=== PATIENT | female | born 1960 | race Caucasian/White ===

== ENCOUNTER → 2016-03-20 | Day surgery (SDC) | payer OTHER ==
[~2016-03-20] MED LIST: BACITRACIN OINT 1 EACH PACKET TOPICAL ONE; LIDOCAINE 1% INJ 10MG/ML (20 ML MDV) ONE; SODIUM BICARB 4% 5 ML VIAL (0.48 MEQ/ML) ONE
--- NOTE | 2016-03-20 10:09 | PCN ---
DATE OF PROCEDURE: PREPROCEDURE DIAGNOSIS: Mammographic abnormality, left breast. POSTPROCEDURE DIAGNOSIS: Mammographic abnormality, left breast. PROCEDURE: Left breast stereotactic core biopsy. DESCRIPTION OF PROCEDURE: Patient was taken to the stereotactic core room and the area of concern in the left breast was localized. Needle was driven to the correct coordinates and multiple core biopsies were obtained. Radiograph of specimen revealed that the area of concern had been sampled. A marking device was left behind. Patient tolerated the procedure in stable condition. Specimen sent to Pathology.
--- NOTE | 2016-03-20 16:33 | MM ---
EXAMINATION TYPE: MG stereo VAD BX LT DATE OF EXAM: 03/20/2016 8:43 AM COMPARISON: Outside mammograms 02/28/2016 and 03/07/2016 CLINICAL HISTORY: 55-year-old female with left breast microcalcifications. TECHNIQUE: Stereotactic guided core biopsy of the left breast. FINDINGS: The procedure of stereotactic guided core biopsy was explained to the patient. Benefits, alternatives, and risks were discussed. An informed consent was then obtained. [facility]. Shortness pathway was CC from above approach. I performed the localization, then surgeon, Dr. Jeovanny Carl performed the remainder of the procedure. A vacuum assisted biopsy gun was used to obtain multiple 8 gauge core samples. The patient tolerated the procedure well without any immediate complication. The patient was kept in the radiology department for short stay after the procedure and then discharged home in stable condition. Targeted calcifications are identified in specimen mammogram. Post biopsy mammogram shows the clip to appear in satisfactory position relative to the targeted microcalcifications at the 12:30 position on the preprocedure images. IMPRESSION: SUCCESSFUL, UNCOMPLICATED STEREOTACTIC GUIDED CORE BIOPSY OF LEFT BREAST MICROCALCIFICATIONS; FULL PATHOLOGY RESULTS TO FOLLOW. Pathology Results: Benign BREAST, LEFT, CORE BIOPSY: PENDING CONSULTATION, SEE ADDENDUM/FINAL DIAGNOSIS. ADDENDUM REPORT BREAST, LEFT, STEREOTACTIC CORE BIOPSY ([id number]; A1-2; 03/20/2016): FIBROCYSTIC CHANGES INCLUDING COLUMNAR CELL CHANGE WITH MICROCALCIFICATIONS. Recommendation Follow up mammogram of the left breast in 6 months. REINALDO
== END ==
LOC: RADMAMWWP 07:25
PROVIDERS: ATTEND Surgery
DX: N64.89 Other specified disorders of breast (principal)
CPT/HCPCS: 88305; 19081; A4648; J2001

== ENCOUNTER → 2016-09-01 | Outpatient (CLI) | payer OTHER ==
--- NOTE | 2016-09-03 09:16 | MM ---
Reason for exam: follow-up at short interval from prior study. Last mammogram was performed 6 months ago. History: Benign MG stereo VAD BX LT of the left breast, March 20, 2016. Physical Findings: Nurse did not find any significant physical abnormalities on exam. MG Diagnostic Mammo LT w CAD CC and MLO view(s) were taken of the left breast. Prior study comparison: March 04, 2016, mammogram. February 28, 2016, mammogram. There are scattered fibroglandular densities. Previous mammotome biopsy in the left breast. No significant new findings when compared with previous films. These results were verbally communicated with the patient and result sheet given to the patient on 09/01/16. ASSESSMENT: Negative, BI-RAD 1 RECOMMENDATION: Routine screening mammogram of both breasts in 6 months. Back on schedule.
== END | disposition home or self-care (01) ==
LOC: RADMAMWWP 10:13
PROVIDERS: ATTEND Surgery
DX: R92.8 Other abnormal and inconclusive findings on diagnostic imaging of breast (principal)

== ENCOUNTER → 2017-10-27 | Outpatient (CLI) | payer OTHER ==
--- NOTE | 2017-10-27 17:23 | BD ---
EXAMINATION TYPE: Axial Bone Density DATE OF EXAM: 10/27/2017 COMPARISON: NONE CLINICAL HISTORY: 57-year-old female screening Height: 5'3 Weight: 163 FRAX RISK QUESTIONS: Secondary Osteoporosis: Current Tobacco Use: y RISK FACTORS HISTORY OF: Active: n Postmenopausal woman: y MEDICATIONS: Additional Medications: anxiety, depression, cholesterol, high blood pressure Additional History: EXAM MEASUREMENTS: Bone mineral densitometry was performed using the [employer] System. Bone mineral density as measured about the Lumbar spine is: ----- L1-L4(G/cm2): 1.450 T Score Values are as follows: ----- L2: 1.1 ----- L3: 2.6 ----- L4: 3.1 ----- L1-L4: 2.2 Bone mineral density about the R hip (g/cm2): 1.120 Bone mineral density about the L hip (g/cm2): 1.104 T Score values are as follows: -----R Neck: 0.6 -----L Neck: 0.5 -----R Total: 0.4 -----L Total: 0.2 IMPRESSION: Normal (Values between +1 and -1 indicate normal bone mass). Consider repeating this study in 5 year s or sooner if there is some new clinical indication. NOTE: T-SCORE=SD OF THE YOUNG ADULT MEAN.
--- NOTE | 2017-10-29 09:16 | MM ---
Reason for exam: screening (asymptomatic). Last mammogram was performed 1 year and 2 months ago. History: Benign MG stereo VAD BX LT of the left breast, March 20, 2016. Physical Findings: A clinical breast exam by your physician is recommended on an annual basis and results should be correlated with mammographic findings. MG Screening Mammo w CAD Bilateral CC and MLO view(s) were taken. Prior study comparison: September 01, 2016, left breast MG diagnostic mammo LT w CAD. March 04, 2016, mammogram. Previous mammotome biopsy in the left breast. No significant changes when compared with prior studies. ASSESSMENT: Benign, BI-RAD 2 RECOMMENDATION: Routine screening mammogram of both breasts in 1 year.
== END | disposition home or self-care (01) ==
LOC: RADBDWWP 12:32
PROVIDERS: ATTEND Family Medicine
DX: Z12.31 Encounter for screening mammogram for malignant neoplasm of breast (principal); Z78.0 Asymptomatic menopausal state
CPT/HCPCS: 77067; 77080

== ENCOUNTER → 2018-12-03 | Outpatient (CLI) | payer OTHER ==
--- NOTE | 2018-12-07 10:06 | MM ---
Reason for exam: screening (asymptomatic). Last mammogram was performed 1 year and 1 month ago. History: Patient is postmenopausal. Benign MG stereo VAD BX LT of the left breast, March 20, 2016. Physical Findings: A clinical breast exam by your physician is recommended on an annual basis and results should be correlated with mammographic findings. MG Screening Mammo w CAD Bilateral CC and MLO view(s) were taken. Prior study comparison: October 27, 2017, bilateral MG screening mammo w CAD. September 01, 2016, left breast MG diagnostic mammo LT w CAD. The breast tissue is heterogeneously dense. This may lower the sensitivity of mammography. Left biopsy marker noted. ASSESSMENT: Negative, BI-RAD 1 RECOMMENDATION: Routine screening mammogram of both breasts in 1 year.
== END | disposition home or self-care (01) ==
LOC: RADMAMWWP 13:13
PROVIDERS: ATTEND Family Medicine
DX: Z12.31 Encounter for screening mammogram for malignant neoplasm of breast (principal)
CPT/HCPCS: 77067

== ENCOUNTER → 2019-01-15 | Outpatient (CLI) | payer OTHER ==
--- NOTE | 2019-01-15 07:48 | MR ---
MR lumbar spine wo con Radiculopathy, lumbar region Multiplanar, multiecho imaging of the lumbar spine was obtained without contrast on a 3 Lety magnet. REFERENCE:None. FINDINGS: Paraspinal soft tissues are normal. Vertebral body height and alignment are maintained. Cord signal is maintained. The conus ends normall y at the level of the mid body of L2. At T12-L1, there are mild hypertrophic changes in the facets. At L1-2, there is mild capsulitis and hypertrophic change in the facets. At L2-3, there is mild capsulitis and hypertrophic change in the facets. At L3-4, there is mild disc space loss. Intervertebral foramina are well maintained. There is no sign ificant compressive discopathy. There is hypertrophic change and capsulitis within the facets. At L4-5, the intervertebral foramina are well maintained. There is a diffuse disc displacement. There is hypertrophic change in the facets. There is mild trefoiling of the thecal sac. There is bilateral lateral recess stenosis. At L5-S1, the intervertebral foramina are well maintained. There is a diffuse disc displacement. Ther e are hypertrophic changes in the facets. IMPRESSION: 1. DIFFUSE FACET ARTHROPATHY. 2. BILATERAL LATERAL RECESS STENOSIS, L4-5. 3. MILD CENTRAL CANAL STENOSIS, L4-5.
== END ==
LOC: RADMRIMAIN 07:04
PROVIDERS: ATTEND Family Medicine
DX: M48.061 Spinal stenosis, lumbar region without neurogenic claudication (principal); M46.96 Unspecified inflammatory spondylopathy, lumbar region
CPT/HCPCS: 72148

== ENCOUNTER → 2020-04-03 | Outpatient (CLI) | payer OTHER ==
--- NOTE | 2020-04-04 11:50 | MM ---
Reason for exam: screening (asymptomatic). Last mammogram was performed 1 year and 4 months ago. History: Patient is postmenopausal. Benign MG stereo VAD BX LT of the left breast, March 20, 2016. Physical Findings: A clinical breast exam by your physician is recommended on an annual basis and results should be correlated with mammographic findings. MG Screening Mammo w CAD Bilateral CC and MLO view(s) were taken. Prior study comparison: December 03, 2018, bilateral MG screening mammo w CAD. October 27, 2017, bilateral MG screening mammo w CAD. There are scattered fibroglandular densities. There is no discrete abnormality. No significant changes when compared with prior studies. ASSESSMENT: Negative, BI-RAD 1 RECOMMENDATION: Routine screening mammogram of both breasts in 1 year.
== END | disposition home or self-care (01) ==
LOC: RADMAMWWP 09:37
PROVIDERS: ATTEND Family Medicine
DX: Z12.31 Encounter for screening mammogram for malignant neoplasm of breast (principal)
CPT/HCPCS: 77067

== ENCOUNTER → 2021-03-29 | Outpatient (CLI) | payer OTHER ==
--- NOTE | 2021-03-29 11:35 | CTL ---
EXAMINATION TYPE: CT Low Dose Lung DATE OF EXAM ORDERED: 03/29/2021 HISTORY: 60-year-old female personal history tobacco use. Lung cancer screening CT DLP: 88.[address] CTDI: 2.4 mGy Automated exposure control for dose reduction was used. SCREENING VISIT: Baseline COMPARISON: 02/11/2013 TECHNIQUE: Low dose computed tomography scan was performed through the chest with coronal and sagitta l reconstructions. CT DIAGNOSTIC QUALITY: Satisfactory FINDINGS: Heart normal size without pericardial effusion. Aorta normal caliber with a variant direct takeoff of the left vertebral artery directly from the aor tic arch. No thoracic lymphadenopathy by CT size criteria. Mild diffuse bronchial wall thickening. Mild centrilobular emphysema. A small, subtle 9 mm groundglass focus appears segment left lower lobe, axial image 102. A few scattered 3 mm pulmonary nodules bilaterally. For example, axial image 39, 72, 118, and 151. No larger pulmonary nodules are identified. No consolidation or pleural effusion. Tiny hiatal hernia. Visualized upper abdomen otherwise show no gross abnormal. Bones: Minimal anterior endplate spondylosis scattered within the thoracic spine. IMPRESSION: 1. LungRADS 2, benign. A few scattered 3 mm pulmonary nodules on baseline screening. 2. A subtle patch of groundglass superior segment left lower lobe suggests a small nonspecific infect ious or inflammatory focus. Correlate for any acute symptoms. 3. COPD with mild emphysema. Recommend smoking cessation. CT LUNG RAD AND CT CHEST RECOMMENDATION: Lung-Rad 2 Benign Appearance or Behavior: Continue annual sc reening with LDCT in 12 months. S Modifier (other clinically significant findings): None
== END | disposition home or self-care (01) ==
LOC: RADCTMAIN 07:54
PROVIDERS: ATTEND Family Medicine
DX: Z12.2 Encounter for screening for malignant neoplasm of respiratory organs (principal); R91.8 Other nonspecific abnormal finding of lung field; J43.2 Centrilobular emphysema; Z87.891 Personal history of nicotine dependence
CPT/HCPCS: 71271

== ENCOUNTER → 2021-04-24 | Outpatient (CLI) | payer OTHER ==
--- NOTE | 2021-04-25 14:23 | MM ---
Reason for exam: screening (asymptomatic). Last mammogram was performed 1 year and 1 month ago. History: Patient is postmenopausal. Family history of breast cancer in sister at age 56. Benign MG stereo VAD BX LT of the left breast, March 20, 2016. Physical Findings: A clinical breast exam by your physician is recommended on an annual basis and results should be correlated with mammographic findings. MG 3D Screening Mammo W/Cad Bilateral CC and MLO view(s) were taken. Prior study comparison: April 03, 2020, bilateral MG screening mammo w CAD. December 03, 2018, bilateral MG screening mammo w CAD. There are scattered fibroglandular densities. There is no discrete abnormality. No significant changes when compared with prior studies. ASSESSMENT: Negative, BI-RAD 1 RECOMMENDATION: Routine screening mammogram of both breasts in 1 year.
== END | disposition home or self-care (01) ==
LOC: RADMAMWWP 10:10
PROVIDERS: ATTEND Family Medicine
DX: Z12.31 Encounter for screening mammogram for malignant neoplasm of breast (principal); Z78.0 Asymptomatic menopausal state; Z80.3 Family history of malignant neoplasm of breast
CPT/HCPCS: 77063; 77067

== ENCOUNTER → 2021-06-12 | Outpatient (CLI) | payer OTHER ==
--- NOTE | 2021-06-12 17:08 | BD ---
EXAMINATION TYPE: Axial Bone Density DATE OF EXAM: 06/12/2021 COMPARISON: NONE CLINICAL HISTORY: 60 year old Female. ICD-10 CODE: Z78.0 Height: 63 Weight: 179 FRAX RISK QUESTIONS: Alcohol (3 or more units per day): no Family History (Parent hip fracture): no Glucocorticoids (More than 3mos): no (Ex: prednisone, prednisolone, methylprednisolone, dexamethasone, and hydrocortisone). History of Fracture in Adulthood: no Secondary Osteoporosis: 1. Type 1 Diabetes: no 2. Hyperthyroidism: no 3. Menopause before 45: no 4. Malnutrition: no 5. Chronic liver disease: no Rheumatoid Arthritis: no Current Tobacco Use: yes RISK FACTORS HISTORY OF: Surgery to Spine/Hip(right/left)/Wrist (right/left): no Family History of Osteoporosis: no Active: no Diet low in dairy products/other sources of calcium: yes Postmenopausal woman: yes Lost more than 2 inches in height since high school: no MEDICATIONS: Additional History: EXAM MEASUREMENTS: Bone mineral densitometry was performed using the [employer] System. Bone mineral density as measured about the Lumbar spine is: ----- L1-L4(G/cm2): 1.384 T Score Values are as follows: ----- L1: 0.2 ----- L2: 0.3 ----- L3: 2.4 ----- L4: 3.2 ----- L1-L4: 1.7 Bone mineral density has: decreased -2.1 % since study of: 10.27.2017 Bone mineral density about the R hip (g/cm2): 1.055 Bone mineral density about the L hip (g/cm2): 1.061 T Score values are as follows: -----R Neck: 0.1 -----L Neck: 0.2 -----R Total: 0.2 -----L Total: 0.0 Bone mineral density has: decreased -1.7 % since study of: 10.27.2017 FRAX%s: The graph provided illustrates a 5.4% chance for a major osteoporotic fx and a 0.2% chance fo r the hips probability for fx in 10 years time. IMPRESSION: Normal (Values between +1 and -1 indicate normal bone mass). Consider repeating this study in 5 year s or sooner if there is some new clinical indication. NOTE: T-SCORE=SD OF THE YOUNG ADULT MEAN.
== END | disposition home or self-care (01) ==
LOC: RADBDWWP 07:42
PROVIDERS: ATTEND Family Medicine
DX: Z78.0 Asymptomatic menopausal state (principal)
CPT/HCPCS: 77080

== ENCOUNTER → 2023-04-27 | Outpatient (CLI) | payer OTHER ==
--- NOTE | 2023-04-27 11:08 | CTL ---
EXAMINATION TYPE: CT Low Dose Lung DATE OF EXAM ORDERED: 04/27/2023 HISTORY: 62-year-old female with F17.200, nicotine dependence, current smoker with over 35 pack-year history. Lung cancer screening CT DLP: 87.[address] CTDI: 2.4 mGy Automated exposure control for dose reduction was used. SCREENING VISIT: Annual follow-up COMPARISON: 04/25/2022 TECHNIQUE: Low dose computed tomography scan was performed through the chest with coronal and sagitta l reconstructions. CT DIAGNOSTIC QUALITY: Satisfactory FINDINGS: The heart is normal size without pericardial effusion. Aorta normal caliber with aberrant direct takeoff of the left vertebral artery directly from the aort ic arch. Lower right paratracheal node prominent at 9 mm. No thoracic lymphadenopathy by CT size criteria. There is mild emphysematous change. Mild bronchial wall thickening. No consolidation or pleural effus ion. 1.0 cm vague groundglass focus left midlung within the superior segment left lower lobe, axial image 105 remains unchanged. There are numerous scattered 5 mm and smaller bilateral pulmonary nodules which remain unchanged sugg esting a benign etiology. Largest at the posterior left base axial image 188. Visualized upper abdomen shows no gross abnormality. Bones: Mild degenerative disc disease and facet arthropathy midthoracic spine. IMPRESSION: 1. LungRADS 2, benign. Stable 5 mm and smaller pulmonary nodules as well as a vague 1 cm groundglass focus left midlung. 2. COPD with mild emphysema. Recommend smoking cessation. CT LUNG RAD AND CT CHEST RECOMMENDATION: Lung-Rad 2 Benign Appearance or Behavior: Continue annual sc reening with LDCT in 12 months. S Modifier (other clinically significant findings): None
--- NOTE | 2023-04-27 16:39 | MM ---
Reason for Exam: Screening (asymptomatic). Last screening mammogram was performed 12 month(s) ago. Patient History: Menarche at age 15. First Full-Term at age 24. Postmenopausal. Patient has history of breast feeding. 03/20/2016, Benign Core Biopsy on the left side. Sister had breast cancer, age 56. Risk Values: Debby 5 year model risk: 3.2%. NCI Lifetime model risk: 15.8%. Prior Study Comparison: 04/03/2020 Bilateral Screening Mammogram, [facility]. 04/24/2021 Bilateral Screening Mammogram, [facility]. 04/25/2022 Bilateral MG 3D screening mammo w/cad, [facility]. Tissue Density: The breast tissue is heterogeneously dense. This may lower the sensitivity of mammography. Findings: Analyzed By CAD. The pattern is symmetrical. No significant interval changes are evident. No suspicious groups of microcalcifications, spiculated or lobular masses, architectural distortion or other secondary signs of malignancy are mammographically apparent. Overall Assessment: Benign, BI-RAD 2 Management: Screening Mammogram of both breasts in 1 year. A negative mammogram report should not preclude additional follow up of suspicious palpable abnormalities. Patient should continue monthly self breast exam. A clinical breast exam by your physician is recommended on an annual basis and results should be correlated with mammographic findings. Electronically signed and approved by: Abhishek Hurd D.O. Radiologis
== END | disposition home or self-care (01) ==
LOC: RADMAMWWP 10:12
PROVIDERS: ATTEND Family Medicine
DX: Z12.31 Encounter for screening mammogram for malignant neoplasm of breast (principal); Z12.2 Encounter for screening for malignant neoplasm of respiratory organs; J43.9 Emphysema, unspecified; F17.210 Nicotine dependence, cigarettes, uncomplicated; J44.9 Chronic obstructive pulmonary disease, unspecified; R91.1 Solitary pulmonary nodule; R91.8 Other nonspecific abnormal finding of lung field; Z78.0 Asymptomatic menopausal state; Z80.3 Family history of malignant neoplasm of breast
CPT/HCPCS: 71271; 77063; 77067

== ENCOUNTER 2023-04-28 08:48 | Day surgery (SDC) | payer OTHER ==
[2023-04-24 08:51] VITALS: BMI 31.2
[2023-04-28] MEDS: LACTATED RINGERS 1,000 ML IV SCH (09:15)
[2023-04-28 09:45] VITALS: RESP 16; TEMP 97.9
[2023-04-28] MEDS ORDERED: PROPOFOL 10 MG/ML 20 ML VIAL IV ONE (10:17)
[2023-04-28] MEDS ORDERED: LIDOCAINE 1% INJ 10MG/ML (20 ML MDV) ONE (10:17)
--- NOTE | 2023-04-28 10:36 | P.PCN ---
Date of Procedure: 04/28/23 Procedure(s) Performed: BRIEF HISTORY: Patient is a 62-year-old pleasant white female scheduled for an elective colonoscopy as a part of evaluation of prior history of colon polyps. Last colonoscopy was 7 years ago. PROCEDURE PERFORMED: Colonoscopy with snare polypectomy. PREOPERATIVE DIAGNOSIS: History of colon polyps. IV sedation per Anesthesia. PROCEDURE: After informed consent was obtained, the patient, was brought into the endoscopy unit. IV sedation was administered by Anesthesia under continuous monitoring. Digital rectal examination was normal. Initially the Olympus CF-160 flexible video colonoscope was then inserted in the rectum, gradually advanced into the cecum without any difficulty. Careful examination was performed as the scope was gradually being withdrawn. Ileocecal valve and the appendiceal orifice were visualized and appeared normal. Prep was excellent. Mucosa of the cecum, ascending colon, transverse colon, descending colon, sigmoid colon, and rectum appeared normal. In the rectum there were 2 polyps measuring 5 mm in size both of which were removed by cold snare polypectomy. Scattered sigmoid diverticulosis. 4 the Retroflexion was performed in the rectum and no lesions were seen. The patient tolerated the procedure well. IMPRESSION: 5 mm x 2 proximal rectal polyps s/p cold snare polypectomy Sigmoid diverticulosis RECOMMENDATIONS: Findings of this examination were discussed with the patient as well as her family. She was advised to follow with the biopsy results. If the biopsy results adenoma she can have a repeat colonoscopy in 5 years..
[2023-04-28 11:21] VITALS: BP 105/73; PULSE 84
== END 2023-04-28 11:16 | disposition home or self-care (01) ==
LOC: ORWHC2ENDO 08:48
PROVIDERS: ATTEND Internal Medicine Gastroenterology
DX: Z12.11 Encounter for screening for malignant neoplasm of colon (principal); K62.1 Rectal polyp; K57.30 Diverticulosis of large intestine without perforation or abscess without bleeding; E78.5 Hyperlipidemia, unspecified; J44.9 Chronic obstructive pulmonary disease, unspecified; F41.9 Anxiety disorder, unspecified; F32.A Depression, unspecified; Z79.51 Long term (current) use of inhaled steroids; Z79.82 Long term (current) use of aspirin; Z79.899 Other long term (current) drug therapy; Z98.890 Other specified postprocedural states; Z86.010 Personal history of colon polyps
CPT/HCPCS: 45385; J2001; J2704; 88305

== ENCOUNTER → 2024-05-05 | Outpatient (CLI) | payer OTHER ==
--- NOTE | 2024-05-05 09:51 | CT ---
EXAMINATION TYPE: CT chest wo con DATE OF EXAM: 05/05/2024 9:17 AM COMPARISON: 02/11/2013, 03/29/2021 CLINICAL INDICATION: Female, 63 years old with history of R91.8 abnormal findings lung field; PHH, Fo llow up to abn finding TECHNIQUE: Multiple axial images were obtained through the chest. Sagittal and coronal reformats were created for review. MIP was performed on a separate workstation. Contrast used: mL of (None if empty) Oral contrast used: (None if empty) CT DLP: 545 mGycm, Automated exposure control for dose reduction was used. FINDINGS: LUNGS/ PLEURA: 14 mm groundglass pulmonary nodule along the fissure in the left lower lobe superior s egment measuring 14 mm previously 9 mm on 03/29/2021 and not seen on 02/11/2013. No focal consolidatio n, pneumothorax or pleural effusion. AIRWAY: Patent and unremarkable. HEART: Size within normal limits. No significant coronary artery calcifications. MEDIASTINUM: No gross evidence of adenopathy. VASCULATURE: No aortic aneurysm. MUSCULOSKELETAL: Mild disc degeneration changes are present throughout the thoracolumbar spine second cindy to osteophyte formation and facet joint arthropathy. SOFT TISSUES/LYMPH NODES: Unremarkable. LOWER NECK: No significant findings. UPPER ABDOMEN: No significant findings. 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 This has steadily increased in size from 2021. [facility], , 05/05/2024 9:48 AM
--- NOTE | 2024-05-05 15:08 | MM ---
Reason for Exam: Screening (asymptomatic). Last mammogram was performed 1 year(s) and 1 month(s) ago. Patient History: Menarche at age 15. First Full-Term at age 24. Postmenopausal. Patient has history of breast feeding. 03/20/2016, Benign Core Biopsy on the left side. Sister had breast cancer, age 56. Risk Values: Debby 5 year model risk: 3.4%. NCI Lifetime model risk: 15.4%. Prior Study Comparison: 04/24/2021 Bilateral Screening Mammogram, [facility]. 04/25/2022 Bilateral MG 3D screening mammo w/cad, [facility]. 04/27/2023 Bilateral MG 3D screening mammo w/cad, [facility]. Tissue Density: There are scattered areas of fibroglandular density. Findings: Analyzed By CAD. Microclip left breast from prior biopsy. There is no suspicious group of microcalcifications or new suspicious mass in either breast. Overall Assessment: Benign, BI-RAD 2 Management: Screening Mammogram of both breasts in 1 year. See note below in regards to the patient's increased 5 year Debby score. Patient should continue monthly self-breast exams. A clinical breast exam by your physician is recommended on an annual basis. This exam should not preclude additional follow-up of suspicious palpable abnormalities. Note on Debby scores and lifetime risk: 1. A Debby score greater than 3% is considered moderate risk. If this is the case, consider specialist referral to assess eligibility for a risk reducing agent. 2. If overall lifetime risk for the development of breast cancer is 20% or higher, the patient may qualify for future screening with alternating mammogram and breast MRI. [facility], , 05/05/2024 3:05 PM. Electronically signed and approved by: Sienna Kramer M.D. Radiologist
== END | disposition home or self-care (01) ==
LOC: RADCTMAIN 08:58
PROVIDERS: ATTEND Family Medicine
DX: Z12.31 Encounter for screening mammogram for malignant neoplasm of breast (principal); R91.8 Other nonspecific abnormal finding of lung field; R92.323 Mammographic fibroglandular density, bilateral breasts; R91.1 Solitary pulmonary nodule; Z78.0 Asymptomatic menopausal state; Z80.3 Family history of malignant neoplasm of breast
CPT/HCPCS: 71250; 77063; 77067